=== PATIENT | male | born 1995 | race Caucasian/White ===

== ENCOUNTER 2017-10-09 13:00 | Outpatient (CLI) | payer OTHER ==
[~2017-10-09 13:00] MED LIST: Iopamidol 370 76% 100 ML VIAL ONE
--- NOTE | 2017-10-09 15:36 | CT ---
CT ABDOMEN AND PELVIS WITH ORAL AND IV CONTRAST (CT intraoperative) 10/09/17 HISTORY: Abdominal pain. Crohn's disease of small bowel. FINDINGS: Comparison made to exam of 08/23/16. The lung bases are clear. Calcified gallstones again seen. The liver, spleen, pancreas, adrenal gland s and left kidney are normal. A small cyst was seen in the right kidney. No free air, free fluid, or lymphadenopathy is noted in the abdomen or pelvis. There are postop changes in the cecum and region of the cecum. The small bowel loops are not abnormal ly dilated. No abnormal postcontrast enhancement is seen. There is fluid in the colon and rectum. Flu id is also present in the nondilated loops of small bowel. No calculi seen in the kidneys, ureters, or urinary bladder. No hydroureteronephrosis identified. No acute osseous abnormalities are seen. IMPRESSION: 1. Findings are suggestive of enterocolitis. 2. Cholelithiasis. POS: [facility]
== END 2017-10-09 13:01 | disposition home or self-care (01) ==
LOC: CT 13:00
PROVIDERS: ATTEND Internal Medicine
DX: K50.00 Crohn's disease of small intestine without complications (principal); K80.20 Calculus of gallbladder without cholecystitis without obstruction
CPT/HCPCS: 74178